=== PATIENT | female | born 2000 | race Caucasian/White ===

== ENCOUNTER 2023-04-15 13:08 | Emergency (ER) | payer OTHER, MEDICAID ==
[~2023-04-15] VITALS: Ht 165.1 cm; Wt 65.8 kg
[2023-04-15 13:14] VITALS: BP_SYST 155; PULSE 80; RESP 18; TEMP 97.3; O2SAT 100
--- NOTE | 2023-04-15 13:14 | NUR ---
DR. RAYO AT BEDSIDE TO ASSESS PT.
--- NOTE | 2023-04-15 13:14 | NUR ---
RECEIVED PT FROM [facility]ART[facility] CONTE. PT PAMELA ACLS S/P ALLERGIC RX. PT IS ALLERGIC TO 7 FRUITS, PREDOMINENTLY PAULY. PT WAS EATING LUNCH AT WORK AND STATED SHE MUST HAVE BEEN EXPOSED. PT IS AAOX4. RESP E/U. MILD NAUSEA AND JUST RECEIVED ZOFRAN IN THE FIELD. PT HAS 20 TO RAC, FLUSHED AND PATENT.
[2023-04-15] MEDS ORDERED: methylPREDNISolone SOD SUCC/PF 62.5 MG/ML VIAL IVP ONE (13:15)
--- NOTE | 2023-04-15 13:33 | NUR ---
GAVE PATIENT SOLU-MEDROL 125 MG IVP ON LEFT AC.
[2023-04-15 13:54] VITALS: BP_SYST 134; PULSE 75; RESP 16; TEMP 97.7; O2SAT 99
== END 2023-04-15 13:56 | disposition home or self-care (01) ==
LOC: SED 13:08
DX: T78.09XA Anaphylactic reaction due to other food products, initial encounter (principal); R06.02 Shortness of breath; R10.9 Unspecified abdominal pain; R11.0 Nausea; Z91.018 Allergy to other foods; Z79.899 Other long term (current) drug therapy
CPT/HCPCS: 99283; 96374; J2930